=== PATIENT | female | born 1970 | race Two or more races ===

== ENCOUNTER 2016-10-20 20:28 | Emergency (ER) | payer OTHER ==
--- NOTE | ~2016-10-20 | CR126 ---
[facility] A Service of [facility] RADIOLOGY TEXT RESULTS PATIENT: CLAYTON GARCIA LOCATION: [facility] : 70 UNIT #: [id number] AGE: [address]: Angus Bowers MD SEX: F ORDER DR: [id number] [facility] [address] [facility] [place], [place] [address] [id number] MR#: [id number] Acc #: [id number] NAME: CLAYTON GARCIA : 1970 SEX: F STUDY DATE/TIME: 10/20/2016 23:53 UNIT: [facility] ROOM: STUDY DESCRIPTION: CR Foot Complete Min 3 View Lt Attending Physician: Angus Bowers M.D. Ordering Physician: Angus Bowers M.D. Primary Care Physician: Gayathri JaraPCorneliaRReynaldo MEDICAL IMAGING REPORT This report is preliminary unless electronic signature is present EXAM Left foot 3 views HISTORY Crush injury to great toe yesterday. Pain. FINDINGS Three views of the left foot demonstrate transverse fracture at the tip of the distal phalangeal tuft of the great toe with 3.0 mm separation of the fracture fragment. No additional acute finding. Satisfactory bone alignment to the remainder of the foot. Moderate sized posterior calcaneal spur. Mild degenerative changes at the first MTP joint. Dictated by... Shahriar Lipscomb M.D. THIS IS AN ELECTRONICALLY VERIFIED REPORT Shahriar Lipscomb M.D. at 10/22/2016 4:15 AM Sandip TD: 10/21/2016 08:48 JOB #: [id number] MEDICAL IMAGING REPORT Page 1 of 1 COPY
[~2016-10-20 20:28] MED LIST: VICODIN 5/1 TAB 5/50 PO
== END 2016-10-21 01:15 | disposition home or self-care (01) ==
LOC: CED 20:28
DX: S92.422A Displaced fracture of distal phalanx of left great toe, initial encounter for closed fracture (principal); S61.112A Laceration without foreign body of left thumb with damage to nail, initial encounter; W20.8XXA Other cause of strike by thrown, projected or falling object, initial encounter; Y92.009 Unspecified place in unspecified non-institutional (private) residence as the place of occurrence of the external cause; Z23 Encounter for immunization
CPT/HCPCS: 11760; 73630; 90471; 90715; 99283